=== PATIENT | male | born 2000 | race Caucasian/White ===

== ENCOUNTER → 2020-08-18 | Outpatient (CLI) | payer OTHER ==
[~2020-08-18] MED LIST: BACTRIM DS TAB1 EACH PO; KEFLEX500 MG PO
== END ==
LOC: RAD 12:45
DX: S80.02XA Contusion of left knee, initial encounter (principal)
CPT/HCPCS: 73564; 73590

== ENCOUNTER → 2020-10-25 | Outpatient (CLI) | payer BC, OTHER | LOC: RAD 11:02 | DX: R06.02 Shortness of breath (principal); R07.89 Other chest pain; R53.83 Other fatigue; R55 Syncope and collapse | CPT/HCPCS: 71046; 93005 ==

== ENCOUNTER → 2021-01-26 | Outpatient (CLI) | payer BC ==
[~2021-01-26] MED LIST changes: +BENTYL 20MG TAB20 MG PO; +ZOFRAN4 MG PO
== END ==
LOC: HEART 5 10:00
DX: R07.9 Chest pain, unspecified (principal); R53.83 Other fatigue; I08.1 Rheumatic disorders of both mitral and tricuspid valves
CPT/HCPCS: 93306

== ENCOUNTER 2021-03-02 07:03 | Emergency (ER) | payer BC ==
[~2021-03-02 07:03] MED LIST changes: -BENTYL 20MG TAB20 MG PO; -ZOFRAN4 MG PO
[2021-03-02 08:13] LABS: HEMOGLOBIN 14.9 gm/dl (14.0-17.5); WHITE BLOOD COUNT 9.4 K/UL (4.5-11.0)
[2021-03-02 08:40] LABS: BUN/CREATININE RATIO 19 (0-10)
[2021-03-02] MEDS ORDERED: BENTYL 20MG TAB20 MG PO (10:13)
[2021-03-02] MEDS ORDERED: ZOFRAN4 MG PO (10:13)
== END 2021-03-02 10:33 | disposition home or self-care (01) ==
LOC: ER1 07:03
PROVIDERS: Physician Assistant
DX: R10.11 Right upper quadrant pain (principal); R11.0 Nausea; Z90.89 Acquired absence of other organs
CPT/HCPCS: 76705; 80053; 81001; 85025; 96374; 96375; 99284; J1885; J2405

== ENCOUNTER 2021-08-27 11:37 | Emergency (ER) | payer BC ==
[~2021-08-27 11:37] MED LIST changes: +BENTYL 20MG TAB20 MG PO; +ZOFRAN4 MG PO
== END 2021-08-27 12:55 ==
LOC: ER1 11:37
DX: T18.128A Food in esophagus causing other injury, initial encounter (principal); Z20.822 Contact with and (suspected) exposure to COVID-19; X58.XXXA Exposure to other specified factors, initial encounter
CPT/HCPCS: 99283; U0002